=== PATIENT | male | born 1980 | race Caucasian/White ===

== ENCOUNTER 2018-09-05 08:25 | Inpatient (IN) | payer OTHER ==
[~2018-09-05] VITALS: Ht 177.8 cm; Wt 93.0 kg
[~2018-09-05 08:25] MED LIST: AMITRIPTYLINE100 MG PO; BACLOFEN10 MG PO; CYCLOBENZAPRINE10 MG PO; CYMBALTA60 MG PO; FLOMAX0.4 MG PO; IBUPROFEN600 MG PO; LAMICTAL200 MG PO; NORCO 5-325 TA1 EACH PO; PERCOCET 10-321 EACH PO; XANAX1 MG PO
[2018-09-05] MEDS ORDERED: FLOMAX0.4 MG PO (11:54)
--- NOTE | 2018-09-05 12:00 | NUR ---
NEW ADMIT TO THE FLOOR. PT AWAKE, ALERT AND ORIENTED X3. RESP EVEN AND NON LABORED. PT TO GO TO SURGERY SHORTLY. RIGHT LOWER FACE SWELLING NOTED, NO DRAINAGE SEEN. PT DENIES PAIN. PERSONAL SUPPLIES AND CALL LIGHT WIHTIN REACH. NO NEEDS AT THIS TIME.
--- NOTE | 2018-09-05 12:03 | NUR ---
Medications reconciled by viewing prescription bottles and patient interview
--- NOTE | 2018-09-05 13:15 | NUR ---
09/05/18 1314 Narda Hummel 1310-PATIENT ARRIVED TO PACU ON 8L MASK PLACED ON 6L RR EVEN. PATIENT AWAKE DROWSY DENIES PAIN OR NAUSEA. MOVING ARMS. ORIENTED TO PACU. DRESSING TO RIGHT CHEEK HAS SMALL AMT OF SHADOWING ON DRESSING. PATIENT HAS COUGH NO SPUTUM SEEN. ST
[2018-09-05] MEDS ORDERED: IBUPROFEN600 MG PO (13:19)
[2018-09-05] MEDS ORDERED: MAPAP325 MG PO (13:19)
[2018-09-05] MEDS ORDERED: BACTRIM DS TAB1 EACH PO (13:20)
[2018-09-05] MEDS ORDERED: HYDROCODON-ACE1 EA10 PO (13:20)
[2018-09-05] MEDS ORDERED: NICOTINE PATCH1 EAC1 TD (13:31)
--- NOTE | 2018-09-05 14:07 | NUR ---
Pt back from surgery. Pt awake, A&O X3. Pt reports pain in right face is tolerable at this time. Pt recently received Toradol in surgery per report. Pt denies sob, vs taken and are stable. Pt tolerating water at this time. Guaze dressing to right lower jaw area; CDI. No needs at this time. Call light within reach.
--- NOTE | 2018-09-07 08:37 | HP ---
[facility] [address] [place], [place] [address] Signed ADMISSION DATE: 09/05/2018 REASON FOR ADMISSION: Right facial abscess. HISTORY OF PRESENT ILLNESS: This 37-year-old man is accompanied by his mother and presents to the emergency room and evaluated by Dr. Samson with swelling of his right face for the past 3 days. He is a patient of Dr. Golden and has been evaluated for cystic acne in the past. He was noted to have a lesion of his right facial area near the region of the mandible, which has increased in size and in pain and swelling. Patient has a full lizama. He had no associated trauma with this area and has never had a similar such lesion. His evaluation by Dr. Samson in the emergency room confirmed a probable soft tissue abscess. The underlying parotid is normal on a CT scan that was obtained in the emergency room. Patient has had no drainage from the area. PAST MEDICAL HISTORY: Significant for bipolar disease. He takes Lamictal (lamotrigine) 150 mg p.o. b.i.d. for this as well as Flomax 0.4 mg daily on the basis of "prostatitis" and also takes Cymbalta 20 mg p.o. daily. Patient is known to have papilledema upon ingestion of minocycline. He is described also as having allergy of Depakote and Dilaudid. Patient is accompanied by his mother, who is a patient of mine from the past. He is unemployed to my knowledge. REVIEW OF SYSTEMS: He denies any trouble swallowing or breathing particularly. He has had no fever or chills. PHYSICAL EXAMINATION: GENERAL: He is a somewhat obese white man, who looks to be in mild discomfort. He does not look systemically toxic. HEENT: He opens his airway well. He has no trismus. NECK: There is mild adenitis of the right neck, but no large amount of swelling in any way. Neck mobility is good. CHEST: Clear. HEART: Regular without murmur. Electronically Signed By: PERLITA RICH MD 09/07/18 0837 PATIENT NAME: LORETTA CAIN HISTORY AND PHYSICAL DATE OF : 80 REPORT #: [id number] PHYSICIAN: PERLITA RICH MD PCP: MARIA ANTONIA GOLDEN MD REPORT IS CONFIDENTIAL AND NOT TO BE RELEASED WITHOUT AUTHORIZATION [facility] [address], [place] [address] Signed ABDOMEN: Obese, but soft. EXTREMITIES: No peripheral edema, clubbing, or cyanosis. LABORATORY STUDIES: Show white count of 12.6, hematocrit of 43.7, platelets of 271,000. His chem profile shows a potassium of 3.1, but is otherwise normal. Liver enzymes are normal. Review of his CT scan as well as wrist CT scan interpretation is undertaken showing marked inflammatory changes in the right cheek area. The underlying parotid appears normal. There is soft tissue swelling, but no sign of airway compromise. ASSESSMENT: Most likely this represents an infected sebaceous cyst or other soft tissue infection. Incision and drainage is certainly well indicated. Excision of a "mass" that may be associated with this. Specifically, if it is an epidermal inclusion cyst, and most certainly be unsuccessful at this sitting. I would recommend incision and drainage, possibly placement of drain and then delayed excision of the sebaceous mass itself if clinically appropriate at the time. On the other hand, the lesion may be amenable to complete resection in addition to clearance of the infection itself, that is unlikely, however. I discussed this with the patient and his mother who attends to him. The risks of bleeding, infection, cosmetic deformity, and importantly injury to any facial nerve branch; however, meticulous and unintended that might be was also reviewed. Of note, examination of his cranial nerve VII shows him to be able to elevate his lateral lip well and shows no sign of recurrent facial nerve injury that I can detect. Understand all this, they wished to proceed. MD SCAR Aquino/MODL /[id number] cc: MD Dr. Heidi Ramirez Electronically Signed By: PERLITA RICH MD 09/07/18 0837 PATIENT NAME: LORETTA CAIN HISTORY AND PHYSICAL DATE OF : 80 REPORT #: [id number] PHYSICIAN: PERLITA RICH MD PCP: MARIA ANTONIA GOLDEN MD REPORT IS CONFIDENTIAL AND NOT TO BE RELEASED WITHOUT AUTHORIZATION [facility] [address] [place] [address] Signed Copies: MARIA ANTONIA GOLDEN MD ~ Electronically Signed By: PERLITA RICH MD 09/07/18 0837 PATIENT NAME: LORETTA CAIN HISTORY AND PHYSICAL DATE OF : 80 REPORT #: [id number] PHYSICIAN: PERLITA RICH MD PCP: MARIA ANTONIA GOLDEN MD REPORT IS CONFIDENTIAL AND NOT TO BE RELEASED WITHOUT AUTHORIZATION
--- NOTE | 2018-09-07 08:37 | OR ---
[facility] [address], [place] [address] Signed DATE OF OPERATION: 09/05/2018 SURGEON: Perlita Rich MD PREOPERATIVE DIAGNOSIS: Right facial abscess with swelling. POSTOPERATIVE DIAGNOSIS: Right facial abscess with swelling. PROCEDURES: 1. Exam under anesthesia. 2. Incision and drainage of facial abscess with debridement. 3. Placement of Nu Gauze drainage material. ANESTHESIA: General endotracheal, Kellie Nicole CRNA. INDICATION: This 37-year-old white man has bipolar disease, but otherwise reasonably good health. He is unemployed. He smokes marijuana and cigarettes on a daily basis. He is a patient of Dr. Golden. He is noted to have cystic acne from the past. He is noted to have a small mass in his right facial area and was scheduled to see me in the office on Thursday this week. His symptoms worsened and he had increasing swelling and he presented to the emergency room where he was evaluated by Dr. Cummins who noted profound swelling of his right lateral face area. He has a full lizama. There is tenderness to palpation. A CT scan was performed by Dr. Cummins, which showed an abscess in the subcutaneous space without involvement of neoplasm of the parotid itself. There was no sign of airway compromise. He is admitted at this time to undergo incision and drainage of the abscess and other indicated procedures. He understands the risks of bleeding, infection, facial nerve injury, and other unforeseen complications and wished to proceed. FINDINGS: The soft tissue swelling was about 6 cm in size, but the abscess itself was about 3 cm in size. Drainage was undertaken with a limited incision line for breakdown of loculations and drainage of purulent material. Cultures were obtained. There was no sign of sebaceous material and the etiology of this lesion remains uncertain. At conclusion, the wound was packed with 0.25-inch Nu Gauze. DESCRIPTION OF PROCEDURE: Electronically Signed By: PERLITA RICH MD 09/07/18 0837 PATIENT NAME: LORETTA CAIN OPERATIVE REPORT DATE OF : 80 REPORT #: [id number] PHYSICIAN: PERLITA RICH MD PCP: MARIA ANTONIA GOLDEN MD REPORT IS CONFIDENTIAL AND NOT TO BE RELEASED WITHOUT AUTHORIZATION [facility] [address], [place] [address] Signed The patient was brought to the operating room given a general endotracheal anesthetic. Photographs were taken. His face was turned to the left and a portion of his right facial lizama was clipped. The area was photographed and preparation undertaken with a chlorhexidine solution. Palpation revealed a discrete fluctuant mass, but also surrounding soft tissue swelling. An incision was made in the mandibular border allowing for insinuation of hemostat with egress of purulent material. Photographs were taken. The abscess cavity was interrogated with the hemostats, breaking down any loculations. Manual palpation of the facial tissues was undertaken as well. Irrigation was undertaken of the cavity rather than making a counter incision, which I commonly do. Given the position of the abnormality on the face, the wound was packed with Nu Gauze for both hemostatic effects and increased drainage. A 2x2 gauze was applied. The patient was ultimately extubated and transferred to recovery room in good condition having suffered no complications. Sponge, needle, and instrument counts reported as correct x3. Perlita Rich MD JM/MODL /[id number] cc: Rishabh Golden MD Copies: RISHABH CUMMINS RUSSELL BARR MD ~ Electronically Signed By: PERLITA RICH MD 09/07/18 0837 PATIENT NAME: LORETTA CAIN OPERATIVE REPORT DATE OF : 80 REPORT #: [id number] PHYSICIAN: PERLITA RICH MD PCP: MARIA ANTONIA GOLDEN MD REPORT IS CONFIDENTIAL AND NOT TO BE RELEASED WITHOUT AUTHORIZATION
== END 2018-09-05 15:05 | disposition home or self-care (01) | DRG 581 ==
LOC: ED 08:25 → MS 10:41
PROVIDERS: ADMIT Surgery
PROC: 0J910ZZ Drainage of Face Subcutaneous Tissue and Fascia, Open Approach (ICD-10-PCS; principal; 2018-09-05 12:27)
DX: L02.01 Cutaneous abscess of face (principal); F31.9 Bipolar disorder, unspecified; N41.9 Inflammatory disease of prostate, unspecified; E66.9 Obesity, unspecified; F17.210 Nicotine dependence, cigarettes, uncomplicated; Z68.29 Body mass index [BMI] 29.0-29.9, adult; Z79.899 Other long term (current) drug therapy; Z88.1 Allergy status to other antibiotic agents; Z88.8 Allergy status to other drugs, medicaments and biological substances
CPT/HCPCS: 00300; 70487; 80053; 85025; 90471; 90715; 96374; 96375; 99284-25; J0330; J0690; J1100; J1885; J2250; J2405; J2704; J3010; J7120; Q9967

== ENCOUNTER 2025-05-03 13:32 | Emergency (ER) | payer OTHER ==
[~2025-05-03] VITALS: Ht 177.8 cm; Wt 97.3 kg
[~2025-05-03 13:32] MED LIST changes: +BACTRIM DS TAB1 EACH PO; +CLINDAMYCIN PHO30 GM; +DULOXETINE HCL30 MG PO; +DULOXETINE HCL60 MG PO; +HYDROCODON-ACE1 EA10 PO; +IBU400 MG PO; +LAMOTRIGINE100 MG PO; +MAPAP325 MG PO; +NICOTINE PATCH1 EAC1 TD; +TAMSULOSIN HCL0.4 MG PO
[2025-05-03 15:10] VITALS: BP 146/62
== END 2025-05-03 15:10 | disposition left against medical advice (07) ==
LOC: ED 13:32
DX: Z53.21 Procedure and treatment not carried out due to patient leaving prior to being seen by health care provider (principal)